=== PATIENT | female | born 1985 | race Caucasian/White ===

== ENCOUNTER 2020-06-22 19:39 | Emergency (ER) | payer MEDICAID ==
[~2020-06-22] VITALS: Ht 162.6 cm; Wt 84.1 kg
[~2020-06-22 19:39] MED LIST: AMOXICILLIN 50500 MG PO; AZO STANDARD97.5 MG PO; BACTRIM DS 8001 TAB PO; CEFTIN250 MG PO; CEFZIL500 MG PO; CEPHALEXIN500 M1; CIPRO 500MG TA500 MG PO; CRANBERRY CONC500 MG PO; CRANBERRY400 MG PO; DOXYCYCLINE 10100 MG PO; EXCEDRIN TENSION HA; LORTAB 5/500 501 TAB PO; MEDROL 4MG DOSPA4 MG PO; METHADONE HC10 MG/M3 PO; MOTRIN 600600 MG/TAB PO; NO HOME MEDICATIONS; NORCO 325 MG-51 TAB PO; PAXIL 10MG10 MG PO; PERCOCET 325 MG1 TA2 PO; PERCOCET 5/321 UDTAB PO; PHENERGAN 25 TA25 MG PO; PRENATAL1 TA1 PO; VICODIN 5/5001 UDTAB PO; ZOFRAN 4MG T4 MG/TAB PO
[2020-06-22 19:54] VITALS: BP 112/71; TEMP 98.8
[2020-06-22] MEDS ORDERED: SEPTRA DS 8001 TAB PO (21:45)
[2020-06-22 21:53] VITALS: PULSE 98
== END 2020-06-22 21:55 | disposition home or self-care (01) ==
LOC: COL.ER 19:39
DX: L02.411 Cutaneous abscess of right axilla (principal); L03.111 Cellulitis of right axilla; F17.210 Nicotine dependence, cigarettes, uncomplicated; Z87.898 Personal history of other specified conditions

== ENCOUNTER 2020-09-05 12:27 | Emergency (ER) | payer MEDICAID ==
[~2020-09-05] VITALS: Ht 162.6 cm; Wt 90.9 kg
[~2020-09-05 12:27] MED LIST changes: +SEPTRA DS 8001 TAB PO
[2020-09-05 12:54] VITALS: TEMP 97.7
[2020-09-05] MEDS ORDERED: LIDODERM 5% PATC1 EA TP (13:53)
[2020-09-05 14:03] VITALS: BP 144/78; PULSE 78
== END 2020-09-05 14:01 | disposition home or self-care (01) ==
LOC: COL.ER 12:27
DX: M54.5 Low back pain (principal); R22.41 Localized swelling, mass and lump, right lower limb; F17.210 Nicotine dependence, cigarettes, uncomplicated; Z79.891 Long term (current) use of opiate analgesic

== ENCOUNTER → 2020-11-13 | Outpatient (CLI) | payer MEDICAID ==
[~2020-11-13] MED LIST changes: +LIDODERM 5% PATC1 EA TP
== END ==
LOC: COL.RAD 08:39
DX: B19.20 Unspecified viral hepatitis C without hepatic coma (principal); K80.20 Calculus of gallbladder without cholecystitis without obstruction

== ENCOUNTER → 2021-06-29 | Outpatient (CLI) | payer MEDICAID | LOC: COL.LAB 17:10 | DX: Z01.89 Encounter for other specified special examinations (principal) ==